=== PATIENT | female | born 1965 | race Caucasian/White ===

== ENCOUNTER 2016-12-21 21:42 | Emergency (ER) | payer OTHER ==
[~2016-12-21] VITALS: Ht 167.6 cm; Wt 77.6 kg
[2016-12-21 23:17] VITALS: BP 118/72
== END 2016-12-21 23:17 | disposition home or self-care (01) ==
LOC: ED 21:42
DX: J45.909 Unspecified asthma, uncomplicated (principal); E11.9 Type 2 diabetes mellitus without complications; E78.00 Pure hypercholesterolemia, unspecified
CPT/HCPCS: J7613; J7644; Q0162

== ENCOUNTER 2017-08-28 14:17 | Emergency (ER) | payer OTHER ==
[~2017-08-28] VITALS: Ht 167.6 cm; Wt 99.8 kg
[2017-08-28 14:25] VITALS: Ht 167.6 cm; Wt 99.8 kg
[2017-08-28 15:35] VITALS: BP 130/77
== END 2017-08-28 15:35 | disposition home or self-care (01) ==
LOC: ED 14:17
DX: S00.01XA Abrasion of scalp, initial encounter (principal); E11.9 Type 2 diabetes mellitus without complications; E78.00 Pure hypercholesterolemia, unspecified; J45.909 Unspecified asthma, uncomplicated; Z88.2 Allergy status to sulfonamides; Z88.5 Allergy status to narcotic agent; X50.9XXA Other and unspecified overexertion or strenuous movements or postures, initial encounter; Y93.89 Activity, other specified; Y92.89 Other specified places as the place of occurrence of the external cause; Y99.8 Other external cause status
CPT/HCPCS: J3010

== ENCOUNTER 2018-11-23 16:30 | Emergency (ER) | payer OTHER ==
[~2018-11-23] VITALS: Ht 167.6 cm; Wt 99.1 kg
[2018-11-23 16:47] VITALS: Ht 167.6 cm; Wt 99.1 kg
[2018-11-23 18:10] VITALS: BP 126/64
== END 2018-11-23 18:11 | disposition home or self-care (01) ==
LOC: ED 16:30
DX: J45.901 Unspecified asthma with (acute) exacerbation (principal); F17.210 Nicotine dependence, cigarettes, uncomplicated; E78.00 Pure hypercholesterolemia, unspecified; E11.9 Type 2 diabetes mellitus without complications; Z71.6 Tobacco abuse counseling; Z98.890 Other specified postprocedural states; Z88.2 Allergy status to sulfonamides; Z88.5 Allergy status to narcotic agent
CPT/HCPCS: 99406; J7512; J7613; J7644; Q0092